=== PATIENT | male | born 2000 | race Caucasian/White ===

== ENCOUNTER 2023-09-30 14:45 | Inpatient (IN) ==
--- NOTE | 2023-09-30 14:58 | Emergency Department Note ---
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 Reports that he may have been intoxicated. Was found with some redness and swelling to his face and head with concerns of possible head trauma. Patient became quite belligerent on scene evidently police were involved. Patient ultimately required 250 mg of ketamine IM prior to arrival due to this agitation. C-collar was placed. On arrival the patient is unable to provide any significant history. Handoff from EMS as well as police at bedside reports the above history. They believe his name is Evans but they are trying to complete formal identification. There is no other known bystanders. Patient is on provide additional history. 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 C-collar in place. Head: Patient with some erythema to the face with EYES: No injection, discharge or icterus. Pupils 5 mm and dilated bilaterally reactive to light. NECK: Trachea midline. Supple c-collar in place ENT: Mucous membranes pink and moist. Pharynx without erythema or exudate. LUNGS: Airway patent. No retractions. Breath sounds clear HEART: Regular rate and rhythm. No chest wall tenderness ABDOMEN: Soft and non-tender, without guarding or rebound. SKIN: Acyanotic, warm, dry, without rashes EXTREMITIES: Without swelling, tenderness or deformity other than an approximately 2 cm abrasion to the left knee. No significant swelling or deformity noted. NEUROLOGICAL: Minimal withdrawal to painful stimuli in all extremity. Occasionally a slight cough. EK bpm normal sinus rhythm. No PVC or PAC. No acute ST segment elevation or depression with QTc 435. CONTINUOUS CARDIAC MONITORING: was ordered and showed a heart rate of 80s-100s bpm in normal sinus rhythm sinus tachycardia Patient's laboratory studies and imaging reviewed. Differential includes Alcohol intoxication, toxicologic, infection, hypoglycemia, electrolyte abnormalities, cardiac sources, intracerebral event, neurologic, trauma, as well as other pathologies. IMPRESSION/MEDICAL DECISION MAKING: Patient brought in presumptively intoxicated but concern for possible trauma to the head. Agitated in the field required IM ketamine. Patient placed on cardiac monitoring here including end-tidal CO2 with staff monitoring closely at bedside. Shortly after arrival patient became apneic. Then began to retch and was rolled onto his side and had some small amount of vomitus. Not protecting his airway. Emergently moved to room A1 and intubated for airway protection. Not hypoxic during this time. During intubation significant copious clear secretions were noted in the oropharynx that required suctioning. Postintubation chest x-ray ordered. Placed on propofol drip with as needed Versed for sedation. Sent for CT of the head, face, and cervical spine. C-collar maintained at this time. No apparent complications from intubation. Now protecting his airway. Alcohol level and labs sent. Benign abdomen. Stable pelvis. No other significant as a trauma to the extremities. CT head, face, cervical spine radiology without significant traumatic injury noted. Blood work here with slight white blood cell count of 11.6 likely more reactive and lower suspicion for infection. Alcohol level elated at 339. This seems to be the explanation for his altered mental status. Likely will require a period of intubation and sedation overnight until sensorium clears from his severe alcohol intoxication. Hospitalist and ICU contacted. C-collar removed with a negative radiology report. DIAGNOSIS: Altered mental status, respiratory failure, alcohol intoxication DISPOSITION: Hospitalist will evaluate Critical Care I have personally spent 33 minutes of critical care time in the direct management of this patient. This includes bedside care, interpretation of diagnostic studies, and testing, discussion with consultants, patient, and other required patient management activities. These 33 minutes is in excess of all separately billable procedures. ED Intubation Indication airway protection. The patient was on 100% oxygen via BVM prior to the procedure. Suction, airway equipment, RSI drugs, respiratory equipment, and appropriate personnel were prepared prior to the initiation of the procedure. A time out was taken. Induction was performed with 20 mg of etomidate and 120 mg of succinylcholine. After observing the clinical benefit of the medications, the airway was easily visualized utilizing a glidescope S3. A 7.5 size ETT tube was placed atraumatically to 23 cm using standard technique. The cuff inflated without signs of malfunction. There were bilateral breath sounds, positive colormetric change, no gastric sounds, a good capnography waveform, and post procedure pulse oximetry was 99%. Post intubation sedation was administered using Versed and propofol. There were no complications. Past Med/Surg History Social History Smoking Status: Never smoker Hx Alcohol Use: Yes Alcohol type: beer and hard liquor Hx Substance Use: Yes Preferred Language: Malagasy Communication Ability: Effective [employer] Required: No Beliefs That Will Affect Care: None Current Living Situation: Other Current Living Situation Comment: Student apartment/housing. Feels Safe at Home: Declines to Answer Assistive Devices: None Allergies Allergies Allergy/AdvReac Type Severity Reaction Status Date / Time bee venom protein (honey bee) Allergy Anaphylaxis Verified 09/30/23 18:13 Sulfa (Sulfonamide Allergy Rash Verified 09/30/23 18:13 Antibiotics) Home Meds Home Medications Medication Instructions Recorded Confirmed epinephrine 0.3 mg/0.3 mL 0.3 mg IM Q4H PRN Allergic Reaction 09/30/23 09/30/23 injection, auto-injector Results & Data (ED) Vital Signs Vital Signs - 24 hr 09/30/23 14:53 09/30/23 15:00 09/30/23 15:05 Pulse Rate 111 H 123 H 118 H Pulse Rate [Apical] Pulse Rate from SpO2 Sensor 110 H 123 H 117 H Respiratory Rate 16 Respiratory Effort / Characteristics Respiratory Depth Blood Pressure Blood Pressure [Right Arm] Blood Pressure Mean Blood Pressure Mean [Right Arm] Blood Pressure Position [Right Arm] Pulse Oximetry 98 97 97 Oxygen Delivery Method Fraction of Inspired Oxygen Sepsis Recent Fever Within 48 Hours Sepsis New/Unexplained Change in Mental Status Sepsis Action Taken by Nursing End-Tidal CO2 09/30/23 15:08 09/30/23 15:10 09/30/23 15:10 Pulse Rate 114 H Pulse Rate [Apical] Pulse Rate from SpO2 Sensor Respiratory Rate Respiratory Effort / Characteristics Respiratory Depth Blood Pressure 145/92 H 175/118 H Blood Pressure [Right Arm] Blood Pressure Mean 108 137 Blood Pressure Mean [Right Arm] Blood Pressure Position [Right Arm] Pulse Oximetry Oxygen Delivery Method Fraction of Inspired Oxygen Sepsis Recent Fever Within 48 Hours Sepsis New/Unexplained Change in Mental Status Sepsis Action Taken by Nursing End-Tidal CO2 09/30/23 15:10 09/30/23 15:12 09/30/23 15:12 Pulse Rate 115 H 106 H Pulse Rate [Apical] Pulse Rate from SpO2 Sensor 115 H 106 H Respiratory Rate 12 Respiratory Effort / Characteristics Respiratory Depth Blood Pressure 151/113 H Blood Pressure [Right Arm] Blood Pressure Mean 120 Blood Pressure Mean [Right Arm] Blood Pressure Position [Right Arm] Pulse Oximetry 100 100 Oxygen Delivery Method Fraction of Inspired Oxygen Sepsis Recent Fever Within 48 Hours Sepsis New/Unexplained Change in Mental Status Sepsis Action Taken by Nursing End-Tidal CO2 41 09/30/23 15:13 09/30/23 15:14 09/30/23 15:14 Pulse Rate 107 H Pulse Rate [Apical] Pulse Rate from SpO2 Sensor 106 H Respiratory Rate 16 Respiratory Effort / Characteristics Respiratory Depth Blood Pressure 155/102 H Blood Pressure [Right Arm] Blood Pressure Mean 126 Blood Pressure Mean [Right Arm] Blood Pressure Position [Right Arm] Pulse Oximetry 100 100 Oxygen Delivery Method Fraction of Inspired Oxygen Sepsis Recent Fever Within 48 Hours No Sepsis New/Unexplained Change in Mental Status N/A Sepsis Action Taken by Nursing No Action Required End-Tidal CO2 34 09/30/23 15:16 09/30/23 15:16 09/30/23 15:22 Pulse Rate 103 H 105 H Pulse Rate [Apical] Pulse Rate from SpO2 Sensor 104 H Respiratory Rate 16 16 Respiratory Effort / Characteristics Respiratory Depth Blood Pressure 152/92 H Blood Pressure [Right Arm] Blood Pressure Mean 112 Blood Pressure Mean [Right Arm] Blood Pressure Position [Right Arm] Pulse Oximetry 99 100 Oxygen Delivery Method Fraction of Inspired Oxygen 30 Sepsis Recent Fever Within 48 Hours Sepsis New/Unexplained Change in Mental Status Sepsis Action Taken by Nursing End-Tidal CO2 35 40 09/30/23 15:34 09/30/23 15:39 09/30/23 15:39 Pulse Rate 99 H Pulse Rate [Apical] Pulse Rate from SpO2 Sensor 108 H 99 H Respiratory Rate 18 Respiratory Effort / Characteristics Respiratory Depth Blood Pressure 130/94 Blood Pressure [Right Arm] Blood Pressure Mean 107 Blood Pressure Mean [Right Arm] Blood Pressure Position [Right Arm] Pulse Oximetry 100 99 Oxygen Delivery Method Fraction of Inspired Oxygen Sepsis Recent Fever Within 48 Hours Sepsis New/Unexplained Change in Mental Status Sepsis Action Taken by Nursing End-Tidal CO2 35 09/30/23 15:40 09/30/23 15:41 09/30/23 15:41 Pulse Rate 109 H 109 H Pulse Rate [Apical] Pulse Rate from SpO2 Sensor 110 H 112 H Respiratory Rate 12 20 Respiratory Effort / Characteristics Respiratory Depth Blood Pressure 119/87 Blood Pressure [Right Arm] Blood Pressure Mean 88 Blood Pressure Mean [Right Arm] Blood Pressure Position [Right Arm] Pulse Oximetry 99 100 Oxygen Delivery Method Fraction of Inspired Oxygen Sepsis Recent Fever Within 48 Hours Sepsis New/Unexplained Change in Mental Status Sepsis Action Taken by Nursing End-Tidal CO2 36 31 09/30/23 15:42 09/30/23 15:42 09/30/23 15:44 Pulse Rate 114 H 115 H Pulse Rate [Apical] Pulse Rate from SpO2 Sensor 114 H 111 H Respiratory Rate Respiratory Effort / Characteristics Respiratory Depth Blood Pressure 149/109 H Blood Pressure [Right Arm] Blood Pressure Mean 130 Blood Pressure Mean [Right Arm] Blood Pressure Position [Right Arm] Pulse Oximetry 99 100 Oxygen Delivery Method Fraction of Inspired Oxygen Sepsis Recent Fever Within 48 Hours Sepsis New/Unexplained Change in Mental Status Sepsis Action Taken by Nursing End-Tidal CO2 09/30/23 15:44 09/30/23 15:46 09/30/23 15:46 Pulse Rate Pulse Rate [Apical] 103 H Pulse Rate from SpO2 Sensor Respiratory Rate 20 Respiratory Effort / Characteristics Non-Labored Respiratory Depth Normal Blood Pressure 151/99 H Blood Pressure [Right Arm] 138/87 Blood Pressure Mean 109 Blood Pressure Mean [Right Arm] 104 Blood Pressure Position [Right Arm] Pulse Oximetry 99 100 Oxygen Delivery Method Mechanical Vent Mechanical Vent Fraction of Inspired Oxygen Sepsis Recent Fever Within 48 Hours Sepsis New/Unexplained Change in Mental Status Sepsis Action Taken by Nursing End-Tidal CO2 09/30/23 15:46 09/30/23 15:46 09/30/23 15:48 Pulse Rate 101 H Pulse Rate [Apical] Pulse Rate from SpO2 Sensor 100 H Respiratory Rate Respiratory Effort / Characteristics Respiratory Depth Blood Pressure 138/87 130/77 Blood Pressure [Right Arm] Blood Pressure Mean 109 98 Blood Pressure Mean [Right Arm] Blood Pressure Position [Right Arm] Pulse Oximetry 98 Oxygen Delivery Method Fraction of Inspired Oxygen Sepsis Recent Fever Within 48 Hours Sepsis New/Unexplained Change in Mental Status Sepsis Action Taken by Nursing End-Tidal CO2 09/30/23 15:48 09/30/23 15:50 09/30/23 15:50 Pulse Rate 95 H 95 H Pulse Rate [Apical] Pulse Rate from SpO2 Sensor 95 H 95 H Respiratory Rate Respiratory Effort / Characteristics Respiratory Depth Blood Pressure 133/77 Blood Pressure [Right Arm] Blood Pressure Mean 91 Blood Pressure Mean [Right Arm] Blood Pressure Position [Right Arm] Pulse Oximetry 99 98 Oxygen Delivery Method Fraction of Inspired Oxygen Sepsis Recent Fever Within 48 Hours Sepsis New/Unexplained Change in Mental Status Sepsis Action Taken by Nursing End-Tidal CO2 09/30/23 16:00 09/30/23 16:00 09/30/23 16:10 Pulse Rate 93 H Pulse Rate [Apical] Pulse Rate from SpO2 Sensor 94 H Respiratory Rate 16 Respiratory Effort / Characteristics Respiratory Depth Blood Pressure 125/71 124/69 Blood Pressure [Right Arm] Blood Pressure Mean 96 100 Blood Pressure Mean [Right Arm] Blood Pressure Position [Right Arm] Pulse Oximetry 98 Oxygen Delivery Method Fraction of Inspired Oxygen Sepsis Recent Fever Within 48 Hours Sepsis New/Unexplained Change in Mental Status Sepsis Action Taken by Nursing End-Tidal CO2 31 09/30/23 16:10 09/30/23 16:16 09/30/23 16:20 Pulse Rate 90 Pulse Rate [Apical] 87 Pulse Rate from SpO2 Sensor 89 Respiratory Rate 16 30 H Respiratory Effort / Characteristics Mechanically Ventilated Respiratory Depth Normal Blood Pressure 128/73 Blood Pressure [Right Arm] 124/69 Blood Pressure Mean 101 Blood Pressure Mean [Right Arm] 87 Blood Pressure Position [Right Arm] Lying Pulse Oximetry 98 98 Oxygen Delivery Method Mechanical Vent Fraction of Inspired Oxygen Sepsis Recent Fever Within 48 Hours Sepsis New/Unexplained Change in Mental Status Sepsis Action Taken by Nursing End-Tidal CO2 30 09/30/23 16:20 09/30/23 16:30 09/30/23 16:30 Pulse Rate 85 94 H Pulse Rate [Apical] Pulse Rate from SpO2 Sensor 85 95 H Respiratory Rate 16 16 Respiratory Effort / Characteristics Respiratory Depth Blood Pressure 141/82 H Blood Pressure [Right Arm] Blood Pressure Mean 102 Blood Pressure Mean [Right Arm] Blood Pressure Position [Right Arm] Pulse Oximetry 98 98 Oxygen Delivery Method Fraction of Inspired Oxygen Sepsis Recent Fever Within 48 Hours Sepsis New/Unexplained Change in Mental Status Sepsis Action Taken by Nursing End-Tidal CO2 31 33 09/30/23 16:40 Pulse Rate 90 Pulse Rate [Apical] Pulse Rate from SpO2 Sensor Respiratory Rate Respiratory Effort / Characteristics Respiratory Depth Blood Pressure Blood Pressure [Right Arm] Blood Pressure Mean Blood Pressure Mean [Right Arm] Blood Pressure Position [Right Arm] Pulse Oximetry Oxygen Delivery Method Fraction of Inspired Oxygen Sepsis Recent Fever Within 48 Hours Sepsis New/Unexplained Change in Mental Status Sepsis Action Taken by Nursing End-Tidal CO2 Laboratory Data 09/30/23 15:49 09/30/23 15:49 Lab Results 09/30/23 Range/Units 15:49 WBC 11.60 H (4.8-10.8) K/ul RBC 5.07 (4.70-6.10) M/uL Hgb 16.0 (14.0-18.0) g/dl Hct 45.7 (42.0-52.0) % MCV 90.1 (80.0-100.0) fL MCH 31.6 (25.0-34.0) pg MCHC 35.0 (32.0-36.0) g/dL RDW Std Deviation 40.9 (36.4-46.3) fL RDW Coeff of Farhad 12.6 (11.5-14.5) % Plt Count 357 (130-400) K/uL MPV 8.3 L (9.4-12.4) fL Immature Gran % (Auto) 0.5 % Neut % (Auto) 84.4 % Lymph % (Auto) 8.7 % [place] % (Auto) 5.9 % Eos % (Auto) 0.0 % Baso % (Auto) 0.5 % Neut # (Auto) 9.79 H (1.40-6.50) K/uL Lymph # (Auto) 1.01 L (1.20-3.40) K/uL [place] # (Auto) 0.68 H (0.11-0.59) K/uL Eos # (Auto) 0.00 (0.00-0.50) K/uL Baso # (Auto) 0.06 (0.00-0.20) K/uL Immature Gran # (Auto) 0.06 (0.01-0.20) K/uL Sodium 143 (136-145) mmol/L Potassium 3.9 (3.5-5.1) mmol/L Chloride 108 H (98-107) mmol/L Carbon Dioxide 21 (21-32) mmol/L Anion Gap 14 H (3-11) BUN 15 (6-23) mg/dl Creatinine 0.85 (0.6-1.4) mg/dl Est Cr Clr Drug Dosing 141.9 ml/min Est GFR ( Amer) 144.4 ml/min Est GFR (Non-Af Amer) 124.6 ml/min BUN/Creatinine Ratio 17.6 (10-20) Glucose 99 (70-99(Fasting)) mg/dl Calcium 9.5 (8.6-10.3) mg/dl Total Bilirubin 0.4 (0.2-1.0) mg/dl AST 22 (13-39) U/L ALT 15 (7-52) U/L Alkaline Phosphatase 64 (34-104) U/L Total Protein 7.8 (6.0-8.3) gm/dl Albumin 4.9 (3.4-5.0) gm/dl Globulin 2.9 (2.5-4.0) gm/dl Albumin/Globulin Ratio 1.7 (0.9-2) Ethyl Alcohol mg/dL 339.1 H (<10.0) mg/dl Administered Medications Propofol (Diprivan) 1,000 mg in 100 mls @ 14.292 mls/hr IV .Q7H [facility]; Protocol Stop: 10/03/23 15:14 Last Titration: 09/30/23 16:56 Dose: 30 mcg/kg/min, 14.3 mls/hr Documented By: Titration: 09/30/23 15:40 Dose: 25 mcg/kg/min, 11.9 mls/hr Documented By: Admin: 09/30/23 15:16 Dose: 20 mcg/kg/min, 9.5 mls/hr Documented By: FAB Co-signed By: CAROLINE Lactated Ringer's (Lr) 1,000 mls @ 125 mls/hr IV .Q8H [facility] Stop: 10/30/23 17:44 Last Admin: 09/30/23 17:46 Dose: 125 mls/hr Documented By: DOE Fentanyl Citrate (Fentanyl Citrate) 2,500 mcg in 250 mls @ 2.5 mls/hr IV .Q96H [facility]; Protocol Stop: 10/14/23 17:59 Last Admin: 09/30/23 17:59 Dose: 25 mcg/hr, 2.5 mls/hr Documented By: DOE Co-signed By: JACKIE Midazolam HCl (Midazolam Hcl 1 Mg/Ml 2ml Vial) 2 mg IV Q2H PRN PRN Reason: Agitation Stop: 10/30/23 17:48 Last Admin: 09/30/23 17:55 Dose: 2 mg Documented By: DOE Propofol (Propofol Bolus From Bag) 20 mg IV Q5M PRN PRN Reason: Sedation Stop: 10/03/23 15:09 Last Admin: 09/30/23 16:56 Dose: 20 mg Documented By: FAB Co-signed By: AYUSH Admin: 09/30/23 15:29 Dose: 20 mg Documented By: FAB Co-signed By: CAROLINE Admin: 09/30/23 15:22 Dose: 20 mg Documented By: FAB Co-signed By: CAROLINE Admin: 09/30/23 15:16 Dose: 20 mg Documented By: FAB Co-signed By: CAROLINE Discontinued Medications Midazolam HCl (Midazolam Hcl 5 Mg/Ml 1 Ml Vial) 5 mg IV NOW STA Stop: 09/30/23 15:58 Last Admin: 09/30/23 15:59 Dose: Not Given Documented By: FAB Miscellaneous (Rapid Sequence Induction Bag) Confirm Administered Dose 1 each N/A .STK-MED ONE Stop: 09/30/23 15:05 Last Admin: 09/30/23 15:16 Dose: 1 each Documented By: FAB Miscellaneous (Stat Iv Infusion Titration Per Protocol) 1 each N/A NOW STA Stop: 09/30/23 15:11 Last Admin: 09/30/23 15:16 Dose: 1 each Documented By: FAB Propofol (Propofol Iv Emulsion 10 Mg/Ml 100 Ml Vial) Confirm Administered Dose 1,000 mg IV .STK-MED ONE Stop: 09/30/23 15:12 Last Admin: 09/30/23 15:16 Dose: 1,000 mg Documented By: FAB Co-signed By: CAROLINE Imaging Data Radiologist's Impression: Cervical Spine CT 09/30/23 14:50 CT OF THE CERVICAL SPINE WITHOUT CONTRAST CLINICAL HISTORY: facial trauma, etoh COMPARISON STUDY: No previous studies for comparison. TECHNIQUE: Helical axial images of the cervical spine were obtained without IV contrast. Sagittal and coronal reconstructions were viewed. Automated exposure control was utilized for the study. A dose lowering technique was utilized adhering to the principles of ALARA. FINDINGS: Alignment of the cervical spine is anatomic. Vertebral body heights are maintained. No acute cervical spine fracture or subluxation is present. There is no prevertebral edema. Facet joints are intact. Endotracheal tube is partially imaged. Secretions within the pharynx are related to intubation. IMPRESSION: No acute cervical spine fracture or subluxation. ACT 112: Negative or not required by law. Electronically signed by: Sonny Hill M.D. 09/30/2023 4:[address] 09/30/23 14:[address] WITHOUT CONTRAST CLINICAL HISTORY: facial trauma, etoh COMPARISON STUDY: None. TECHNIQUE: A maxillofacial CT was performed without IV contrast. Coronal and sagittal reformats were viewed. Automated exposure control was utilized for the study. A dose lowering technique was utilized adhering to the principles of ALARA. FINDINGS: Endotracheal tube is partially imaged. This likely accounts for secretions within the oropharynx and nasopharynx. There are also secretions within the right nasal cavity/nares. No acute facial bone fracture is present. Alignment of the temporomandibular joints is anatomic. Globes are intact. There is no retrobulbar hematoma. There is rightward deviation of the nasal septum with spur formation. This is chronic. Orbital floors are intact. IMPRESSION: No acute facial fracture. ACT 112: Negative or not required by law. Electronically signed by: Sonny Hill M.D. 09/30/2023 4:[address] 09/30/23 14:50 CT OF THE HEAD WITHOUT CONTRAST CLINICAL HISTORY: facial trauma, etoh COMPARISON STUDY: No previous studies for comparison. TECHNIQUE: Helical axial images of the head were obtained without IV contrast. Automated exposure control was utilized for the study. A dose lowering technique was utilized adhering to the principles of ALARA. FINDINGS: No acute intracranial hemorrhage, midline shift or mass effect is present. The ventricular system is unremarkable. The basal cisterns are patent. No extra-axial collections are present. There are no findings to suggest acute dural sinus thrombosis or acute territorial infarct. No acute calvarial fracture is identified. Please note that the facial bone CT will be reported separately. There are right nasal secretions. IMPRESSION: 1. No acute intracranial findings. 2. No acute calvarial fracture. ACT 112: Negative or not required by law. Electronically signed by: Sonny Hill M.D. 09/30/2023 4:01 PM Chest X-Ray 09/30/23 15:09 SUPINE PORTABLE AP CHEST RADIOGRAPH CLINICAL HISTORY: s/p intubation COMPARISON STUDY: No previous studies for comparison. FINDINGS: The tip of the endotracheal tube is 4.5 cm above the josr. Lung volumes are normal. Lungs are clear. There is no pneumothorax or pleural effusion. Cardiac size is normal. Mediastinal contours are normal. There is no evidence for pulmonary edema. IMPRESSION: 1. Satisfactory positioning of the endotracheal tube. 2. No acute cardiopulmonary findings. ACT 112: Negative or not required by law. Electronically signed by: Sonny Hill M.D. 09/30/2023 3:57 PM Discharge Plan Visit Data Chief Complaint: Facial Injury/Pain Stated Complaint: FACIAL TRAUMA, COMBATIVE ED Provider: Niko Archibald Discharge Problem: Respiratory failure, AMS (altered mental status), Alcohol intoxication Patient Disposition: Admitted As Inpatient Discharge Instructions Interventions: ED Discharge Assessment Last Done: 09/30/23 17:22 Discharge Problem: Respiratory failure Qualifiers: Chronicity: acute AMS (altered mental status) Qualifiers: Altered mental status type: unspecified Qualified Code(s): R41.82 - Altered mental status, unspecified Alcohol intoxication Qualifiers: Complication of substance-induced condition: with unspecified complication Q ualified Code(s): F10.929 - Alcohol use, unspecified with intoxication, unspecified
[2023-09-30] MEDS ORDERED: RAPID SEQUENCE INDUCTION BAG ONE (15:04)
[2023-09-30] MEDS ORDERED: STAT IV Infusion **Titration per Protocol STA ×2 (15:10→17:50)
[2023-09-30] MEDS ORDERED: PROPOFOL IV EMULSION 10 MG/ML 100 ML VIAL IV ONE (15:11)
[2023-09-30] MEDS: propofoL 1,000 MG/100 ML VIAL IV SCH ×3 (15:16→23:00)
[2023-09-30] MEDS: PROPOFOL BOLUS FROM BAG IV PRN ×4 (15:16→16:56)
[2023-09-30] MEDS ORDERED: MIDAZOLAM HCL 5 MG/ML 1 ML VIAL IV STA (15:57)
--- NOTE | 2023-09-30 15:58 | XRay Report ---
SUPINE PORTABLE AP CHEST RADIOGRAPH CLINICAL HISTORY: s/p intubation COMPARISON STUDY: No previous studies for comparison. FINDINGS: The tip of the endotracheal tube is 4.5 cm above the josr. Lung volumes are normal. Lungs are clear. There is no pneumothorax or pleural effusion. Cardiac size is normal. Mediastinal contour s are normal. There is no evidence for pulmonary edema. IMPRESSION: 1. Satisfactory positioning of the endotracheal tube. 2. No acute cardiopulmonary findings. ACT 112: Negative or not required by law. Electronically signed by: Sonny Hill M.D. 09/30/2023 3:57 PM
--- NOTE | 2023-09-30 16:03 | CT Scan Report ---
CT OF THE HEAD WITHOUT CONTRAST CLINICAL HISTORY: facial trauma, etoh COMPARISON STUDY: No previous studies for comparison. TECHNIQUE: Helical axial images of the head were obtained without IV contrast. Automated exposure con trol was utilized for the study. A dose lowering technique was utilized adhering to the principles o f ALARA. FINDINGS: No acute intracranial hemorrhage, midline shift or mass effect is present. The ventricular system is unremarkable. The basal cisterns are patent. No extra-axial collections are present. There are no findings to suggest acute dural sinus thrombosis or acute territorial infarct. No acute calvar ial fracture is identified. Please note that the facial bone CT will be reported separately. There ar e right nasal secretions. IMPRESSION: 1. No acute intracranial findings. 2. No acute calvarial fracture. ACT 112: Negative or not required by law. Electronically signed by: Sonny Hill M.D. 09/30/2023 4:01 PM
[2023-09-30 16:05] LABS: Basophils # (auto) 0.06 K/uL (0.00-0.20); Basophils % (auto) 0.5 %; Hematocrit (blood only) 45.7 % (42.0-52.0); Immature Granulocytes # (auto) 0.06 K/uL (0.01-0.20); Immature Granulocytes % (auto) 0.5 %; Lymphocytes # (auto) 1.01 K/uL (1.20-3.40); Lymphocytes % (auto) 8.7 %; Mean Corpuscular Hemoglobin 31.6 pg (25.0-34.0); Mean Corpuscular Volume 90.1 fL (80.0-100.0); Mean Platelet Volume 8.3 fL (9.4-12.4); Monocytes # (auto) 0.68 K/uL (0.11-0.59); Monocytes % (auto) 5.9 %; Neutrophils # (auto) 9.79 K/uL (1.40-6.50); Neutrophils % (auto) 84.4 %; Platelet Count 357 K/uL (130-400); RDW Coefficient of Variation 12.6 % (11.5-14.5); RDW Standard Deviation 40.9 fL (36.4-46.3); Red Blood Count 5.07 M/uL (4.70-6.10)
--- NOTE | 2023-09-30 16:11 | CT Scan Report ---
MAXILLOFACIAL CT WITHOUT CONTRAST CLINICAL HISTORY: facial trauma, etoh COMPARISON STUDY: None. TECHNIQUE: A maxillofacial CT was performed without IV contrast. Coronal and sagittal reformats were viewed. Automated exposure control was utilized for the study. A dose lowering technique was utiliz ed adhering to the principles of ALARA. FINDINGS: Endotracheal tube is partially imaged. This likely accounts for secretions within the oroph arynx and nasopharynx. There are also secretions within the right nasal cavity/nares. No acute facial bone fracture is present. Alignment of the temporomandibular joints is anatomic. Globes are intact. There is no retrobulbar hematoma. There is rightward deviation of the nasal septum with spur formatio n. This is chronic. Orbital floors are intact. IMPRESSION: No acute facial fracture. ACT 112: Negative or not required by law. Electronically signed by: Sonny Hill M.D. 09/30/2023 4:10 PM
--- NOTE | 2023-09-30 16:16 | CT Scan Report ---
CT OF THE CERVICAL SPINE WITHOUT CONTRAST CLINICAL HISTORY: facial trauma, etoh COMPARISON STUDY: No previous studies for comparison. TECHNIQUE: Helical axial images of the cervical spine were obtained without IV contrast. Sagittal a nd coronal reconstructions were viewed. Automated exposure control was utilized for the study. A do se lowering technique was utilized adhering to the principles of ALARA. FINDINGS: Alignment of the cervical spine is anatomic. Vertebral body heights are maintained. No acut e cervical spine fracture or subluxation is present. There is no prevertebral edema. Facet joints are intact. Endotracheal tube is partially imaged. Secretions within the pharynx are related to intubat ion. IMPRESSION: No acute cervical spine fracture or subluxation. ACT 112: Negative or not required by law. Electronically signed by: Sonny Hill M.D. 09/30/2023 4:15 PM
[2023-09-30 16:21] LABS: Albumin Globulin Ratio 1.7 (0.9-2); Albumin Level 4.9 gm/dl (3.4-5.0); BUN Creatinine Ratio 17.6 (10-20); Bilirubin,Total 0.4 mg/dl (0.2-1.0); Calcium 9.5 mg/dl (8.6-10.3); Creatinine Clr Calc Pharmacy 141.9 ml/min; Est GFR (African American) 144.4 ml/min; Est GFR (Non-African American) 124.6 ml/min; Globulin 2.9 gm/dl (2.5-4.0); Potassium 3.9 mmol/L (3.5-5.1); Total Protein 7.8 gm/dl (6.0-8.3)
--- NOTE | 2023-09-30 16:34 | Emergency Department Note ---
ED Visit Note Prehospital Note: College-age male patient found unresponsive in the [facility] by bystanders. EMS was dispatched to this location. Upon my arrival, the patient was unresponsive to verbal and painful stimuli. He was noted to have trauma about his face and head. He had some vomit noted on his sweatshirt. Heart rate was 95 pulse ox was 98% on room air. Pupils were 2 mm and nonreactive to light. We did hold C-spine immobilization because of the trauma to his face and head. A c-collar was placed. Bystanders state that the patient was found unresponsive there and when they tried to wake him, he became belligerent. With some more aggressive painful stimulation(sternal rub) the patient awoke and looked at me. He did answer that his name was Evans. He denied that he was a [employer] student. Patient was moved to the ambulance stretcher and became significantly uncooperative. Patient requested that he be handcuffed. Police placed him in handcuffs and he was strapped to the stretcher. Once he was placed in the back of the ambulance, the patient became significantly combative and belligerent. He refused to leave the c-collar in place and was throwing his head about the stretcher trying to strike police and EMS personnel with his head. We were unable to obtain a BSG. I felt the patient was going to cause further injury to himself or to the police or EMS. I decided to sedate the patient with intramuscular ketamine. The patient's presumed weight was between 65 and 70 kg and the patient was given 250 mg of IM ketamine in his left thigh. The patient was placed on 15 L high flow oxygen through nonrebreather mask. He was placed on a cafeteria monitor and pulse oximeter. Initial heart rate was 124. Pulse ox was 99% on the nonrebreather mask. The effects of the ketamine were realized within approximately 4 to 6 minutes. The patient was easily able to protect his own airway and we began safe transport to the hospital. Patient was delivered to room A-12. Report was given at the bedside to the nursing staff and physician who would care for the patient. .
--- NOTE | 2023-09-30 16:45 | History & Physical Report ---
Date of Service September 30, 2023 Assessment & Plan (1) Alcohol intoxication: Plan: Alcohol intoxication, unable to guard airway, respiratory failure S/p [place] Patient found in a [place] by bystanders, aroused to noxious stimuli by EMS but became combative requiring 250 IM of ketamine While in the ER patient had episode of vomiting and apnea for which she was intubated to protect his airway. SPO2 normal since, chest x-ray confirms ETT placed Intubated with midazolam/propofol, transferred to the ICU while intubated for airway protection. COntinue propofol drip Alcohol level 339. Mild leukocytosis suspect demargination - CT of the face shows no fracture CTC-spine without fracture/subluxation Transferred to the ICU for vent management UDS pending No contact information available. 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 Patient was placed in a c-collar. With aggressive sternal rub patient did arouse but also became combative in the ambulance requiring to 50 mg of ketamine in the left side for sedation. He arrived on 15 L of high flow nasal cannula through nonrebreather, while within the hospital patient had an episode of vomiting and apnea for which he was emergently intubated and placed on propofol drip with Versed. CXR confirmed placement. CT of the neck w/o fxr or subluxation. History unable to be obtained due to ETT/sedation. Patient does have a cellular device which is password protected and does not have emergency call/contact set up. Unable to access for contact information Allergies Allergy/AdvReac Type Severity Reaction Status Date / Time Unable to Assess Allergy Verified 09/30/23 15:05 Home Medications Medication Instructions Recorded Confirmed Type Unobtainable 09/30/23 09/30/23 History Past Med/Surg History Social History Smoking Status: Unknown if ever smoked Physical Exam Physical Exam: General: Intubated, sedated. Withdraws to noxious stimuli, otherwise does not follow commands HEENT: Erythema of the face, scant amount of blood surrounding the nare. Pupils equal and reactive to light Pulm: ETT in place, clear breath sounds bilaterally Cardiac: RRR, -mrg. Radial pulses intact and symmetrical. Abdominal: nondistended, soft. BS present. Extremities: Superficial abrasion to the right and left lateral knee Results & Data Results & Data Vital Signs (Past 12 Hours) Vital Signs Pulse Pulse Resp BP Pulse Ox O2 Del Method FiO2 09/30/23 16:16 87 30 H 124/69 98 Mechanical Vent 09/30/23 15:46 100 Mechanical Vent 09/30/23 15:46 103 H 20 138/87 99 Mechanical Vent 09/30/23 15:22 105 H 16 100 30 09/30/23 15:13 100 09/30/23 15:10 114 H PG Care Time/CCT Total # of Minutes Spent Total Time Spent with Patient: Total time spent is greater than 50% in coordination of care (as documented) at patient's floor/unit and/or counseling patient: Coding Level of Care Code 76459 INT INP/OBS CARE 3/75MIN Diagnoses Alcohol intoxication F10.929 Respiratory failure J96.90 Chronicity: acute AMS (altered mental status) R41.82 Altered mental status type: unspecified (2) Respiratory failure Chronicity: acute (3) AMS (altered mental status) Altered mental status type: unspecified Qualified Code(s): R41.82 - Altered mental status, unspecified
[2023-09-30 17:28] LABS: Amphetamines+Metham, Urine Neg (Neg); Barbiturates, Urine Neg (Neg); Benzodiazepine, Urine Pos (Neg); Cocaine, Urine Neg (Neg); MDMA (Ecstacy), Urine Neg (Neg); Methadone, Urine Neg (Neg); Opiate, Urine Neg (Neg); Phencyclidine, Urine Neg (Neg)
--- NOTE | 2023-09-30 17:44 | Critical Care Consultation ---
Date of Consultation September 30, 2023 Assessment & Plan (1) Alcohol intoxication: (2) AMS (altered mental status): (3) Respiratory failure: Plan 23-year-old male found in the field obtunded and then became severely agitated. Received ketamine in the field and was brought to the ER via EMS. In the ER he started vomiting and there was concern for aspiration. He was intubated for airway protection. UDS was positive for THC and benzos. Ethanol level 339.1. Neurologic: RASS -1 on propofol. Spontaneous awakening trial tomorrow. Patient presented with agitated delirium likely due to THC and alcohol use. Pulmonary: Minimal vent settings at this time. Continue lung protective ventilation strategy. Obtain baseline ABG. Start antibiotics if patient spikes fever for possible aspiration. Cardiovascular: Maintain MAP above 65 mmHg. Obtain troponin. Admission EKG normal sinus rhythm with a QTc of 360. Gastrointestinal: NGT to low intermittent suction. Renal: No issues aside from mild anion gap. Repeat BMP. Start LR at 125 mL an hour. Infectious disease: Chest x-ray relatively clear. Low threshold to start antibiotics for possible aspiration pneumonia. Hematologic: No issues Endocrine: Check TSH. Maintain euglycemia. Lines and tubes: Peripheral IVs and Best catheter in place. VTE prophylaxis: SCDs CODE STATUS: Full Family at bedside: None available bedside Disposition: ICU I have personally spent 44 minutes of critical care time in the direct management of this patient. This is a life/limb threatening event. This includes time spent evaluating patient, direct bedside care, chart review, placing orders, interpretation of diagnostic studies, discussion with consultants, patient, and family members, as well as other required patient management activities. This time is exclusive of all separately billable procedures, and teaching time and separate from and in addition to any other critical care service time. Thank you for allowing us to participate in the care of this patient. History of Present Illness Reason for Consultation: Acute encephalopathy and mechanical ventilation History of Present Illness History unobtainable from the patient as he is currently intubated and sedated. History obtained from discussion with the ER physician, hospitalist physician, bedside nurse and respiratory therapist. No family immediately available at bedside. 23-year-old male who was found unresponsive. EMS found the patient and he became agitated and aggressive. He was given ketamine. On arrival to the ER he was hypoxic and vomiting. He was intubated for airway protection. He is currently on a propofol infusion. CT head unremarkable. CT face with no acute facial fracture. CT C-spine with no acute cervical spine fracture or subluxation. Labs largely unremarkable aside from mild leukocytosis likely secondary to stress. Mild anion gap seen. Repeat BMP. Allergies Allergy/AdvReac Type Severity Reaction Status Date / Time Unable to Assess Allergy Verified 09/30/23 15:05 Home Medications Medication Instructions Recorded Confirmed Type Unobtainable 09/30/23 09/30/23 History Patient History Social History Smoking Status: Unknown if ever smoked Review of Systems Review of Systems: Unobtainable due to endotracheal tube Physical Exam Physical Exam: Constitutional: Patient appears to be of their stated age Patient is well- developed. Eyes: Pupils are equal round and reactive to light. Conjunctivae are normal. Anicteric sclera. Ears nose, mouth and throat: Endotracheal tube in place. Neck: Trachea is midline. Visual inspection is normal. Respiratory: Clear to auscultation bilaterally. No use of accessory muscles. No significant clubbing noted. Cardiovascular: Regular rate and rhythm. No murmurs. No edema. Gastrointestinal: Normal bowel sounds, soft, nontender and nondistended. No hepatosplenomegaly noted. Musculoskeletal: No cyanosis. Patient is able to move all extremities. Strength is 5 out of 5 in the upper and lower extremities. Skin: No rashes, warm dry and intact. Neurologic: Difficult to assess. Apparently nonfocal prior to intubation. Psychiatric: Unobtainable as the patient is sedated. Results & Data Results & Data Vital Signs (Past 12 Hours) Vital Signs Pulse Pulse Resp BP BP Pulse Ox O2 Del Method 09/30/23 17:22 Mechanical Vent 09/30/23 17:00 81 16 99 09/30/23 17:00 130/79 09/30/23 16:54 98 H 99 09/30/23 16:54 147/113 H 09/30/23 16:50 107 H 09/30/23 16:40 90 09/30/23 16:30 94 H 16 98 09/30/23 16:30 141/82 H 09/30/23 16:20 85 16 98 09/30/23 16:20 128/73 09/30/23 16:16 87 30 H 124/69 98 Mechanical Vent 09/30/23 16:10 90 16 98 09/30/23 16:10 124/69 09/30/23 16:00 93 H 16 98 09/30/23 16:00 125/71 09/30/23 15:50 133/77 09/30/23 15:50 95 H 98 09/30/23 15:48 95 H 99 09/30/23 15:48 130/77 09/30/23 15:46 101 H 98 09/30/23 15:46 138/87 09/30/23 15:46 100 Mechanical Vent 09/30/23 15:46 103 H 20 138/87 99 Mechanical Vent 09/30/23 15:44 151/99 H 09/30/23 15:44 115 H 100 09/30/23 15:42 114 H 99 09/30/23 15:42 149/109 H 09/30/23 15:41 119/87 09/30/23 15:41 109 H 20 100 09/30/23 15:40 109 H 12 99 09/30/23 15:39 99 H 18 99 09/30/23 15:39 130/94 09/30/23 15:34 100 09/30/23 15:22 105 H 16 100 09/30/23 15:16 103 H 16 99 09/30/23 15:16 152/92 H 09/30/23 15:14 107 H 16 100 09/30/23 15:14 155/102 H 09/30/23 15:13 100 09/30/23 15:12 151/113 H 09/30/23 15:12 106 H 12 100 09/30/23 15:10 115 H 100 09/30/23 15:10 175/118 H 09/30/23 15:10 114 H 09/30/23 15:08 145/92 H 09/30/23 15:05 118 H 97 09/30/23 15:00 123 H 97 09/30/23 14:53 111 H 16 98 FiO2 09/30/23 17:22 09/30/23 17:00 09/30/23 17:00 09/30/23 16:54 09/30/23 16:54 09/30/23 16:50 09/30/23 16:40 09/30/23 16:30 09/30/23 16:30 09/30/23 16:20 09/30/23 16:20 09/30/23 16:16 09/30/23 16:10 09/30/23 16:10 09/30/23 16:00 09/30/23 16:00 09/30/23 15:50 09/30/23 15:50 09/30/23 15:48 09/30/23 15:48 09/30/23 15:46 09/30/23 15:46 09/30/23 15:46 09/30/23 15:46 09/30/23 15:44 09/30/23 15:44 09/30/23 15:42 09/30/23 15:42 09/30/23 15:41 09/30/23 15:41 09/30/23 15:40 09/30/23 15:39 09/30/23 15:39 09/30/23 15:34 09/30/23 15:22 30 09/30/23 15:16 09/30/23 15:16 09/30/23 15:14 09/30/23 15:14 09/30/23 15:13 09/30/23 15:12 09/30/23 15:12 09/30/23 15:10 09/30/23 15:10 09/30/23 15:10 09/30/23 15:08 09/30/23 15:05 09/30/23 15:00 09/30/23 14:53 Coding Level of Care Code 25533 CRITICAL CARE 1ST 30-74M Diagnoses Alcohol intoxication F10.929 AMS (altered mental status) R41.82 Altered mental status type: unspecified Respiratory failure J96.90 Chronicity: acute Time Spent (min) 44 (2) AMS (altered mental status) Altered mental status type: unspecified Qualified Code(s): R41.82 - Altered mental status, unspecified (3) Respiratory failure Chronicity: acute
[2023-09-30] MEDS: LACTATED RINGER'S 1,000 ML IV SCH (17:46)
[2023-09-30] MEDS ORDERED: MIDAZOLAM HCL 1 MG/ML 2ML VIAL ONE (17:51)
[2023-09-30] MEDS: MIDAZOLAM HCL 1 MG/ML 2ML VIAL IV PRN (17:55)
[2023-09-30] MEDS ORDERED: fentaNYL citrate 2,500 MCG/250 ML BAG IV ONE (17:57)
[2023-09-30 17:58] LABS: iSTAT Allen Test Pass; iSTAT Art Bld Gas pCO2 Correct 36 mmHg (35-46); iSTAT Art Bld Gas pH Corrected 7.376 (7.35-7.45); iSTAT Arterial Blood Gas HCO3 21 meg/L (19-24); iSTAT Arterial Blood Gas pCO2 36 mmHg (35-46); iSTAT Arterial Blood Gas pH 7.38 (7.35-7.45); iSTAT Arterial Blood Gas pO2 160 mmHg (80-95); iSTAT Arterial Blood Gas pO2 C 160; iSTAT Carbon Dioxide 22 mmol/L (24-31); iSTAT FiO2 30 %; iSTAT Hematocrit 45 % (42-52); iSTAT Hemoglobin 15.3 g/dl (14.0-18.0); iSTAT Potassium 3.7 mmol/L (3.3-5.0); iSTAT Site L Radial; iSTAT Sodium 146 mmol/L (135-144)
[2023-09-30] MEDS ORDERED: fentaNYL citrate 2,500 MCG/250 ML BAG IV SCH (18:00)
[2023-09-30] MEDS ORDERED: INFLUENZA VIRUS QUADRIVALENT VACCINE (IIV4) 0.5 ML SYR IM ONE (18:45)
[2023-09-30 19:18] LABS: BUN Creatinine Ratio 15.3 (10-20); Calcium 9.2 mg/dl (8.6-10.3); Creatinine Clr Calc Pharmacy 141.9 ml/min; Est GFR (African American) 144.4 ml/min; Est GFR (Non-African American) 124.6 ml/min; Potassium 3.7 mmol/L (3.5-5.1)
[2023-09-30 19:25] LABS: Troponin I High Sensitivity 3.3 pg/ml (0-20)
[2023-09-30 19:34] LABS: Thyroid Stimulating Hormone 0.667 uIu/ml (0.300-4.500)
[2023-09-30] MEDS: ICU Protocol for HYPERglycemia SCH (20:35)
[2023-10-01] MEDS: MIDAZOLAM HCL 1 MG/ML 2ML VIAL IV PRN ×2 (00:27→04:46)
[2023-10-01] MEDS: fentaNYL BOLUS from BAG IV PRN ×2 (02:00→04:53)
[2023-10-01] MEDS: PROPOFOL BOLUS FROM BAG IV PRN ×2 (02:00→04:53)
[2023-10-01] MEDS ORDERED: GLUCOSE 40% GEL 15 GM TUBE PO PRN (02:19)
[2023-10-01] MEDS ORDERED: DEXTROSE 50% 50 ML SYRINGE IV PRN (02:19)
[2023-10-01] MEDS ORDERED: GLUCOSE 10 TAB/TUBE PO PRN (02:19)
[2023-10-01] MEDS ORDERED: CARBOHYDRATES FOR HYPOGLYCEMIA PO PRN (02:19)
[2023-10-01] MEDS ORDERED: GLUCAGON FOR INJ 1 MG VIAL SQ PRN (02:19)
[2023-10-01] MEDS ORDERED: DEXTROSE 50% 50 ML SYRINGE IV ONE (02:26)
[2023-10-01] MEDS: LACTATED RINGER'S 1,000 ML IV SCH (02:36)
[2023-10-01] MEDS: propofoL 1,000 MG/100 ML VIAL IV SCH (03:51)
[2023-10-01] MEDS ORDERED: D5W AND 1/2NSS 1,000 ML IV SCH (04:45)
[2023-10-01 04:55] LABS: Basophils # (auto) 0.04 K/uL (0.00-0.20); Basophils % (auto) 0.4 %; Eosinophils # (auto) 0.09 K/uL (0.00-0.50); Eosinophils % (auto) 0.9 %; Hematocrit (blood only) 42.9 % (42.0-52.0); Hemoglobin 14.5 g/dl (14.0-18.0); Immature Granulocytes # (auto) 0.04 K/uL (0.01-0.20); Immature Granulocytes % (auto) 0.4 %; Lymphocytes # (auto) 2.37 K/uL (1.20-3.40); Lymphocytes % (auto) 23.4 %; Mean Corpuscular Hemoglobin 31.4 pg (25.0-34.0); Mean Corpuscular Hgb Conc 33.8 g/dL (32.0-36.0); Mean Corpuscular Volume 92.9 fL (80.0-100.0); Mean Platelet Volume 8.2 fL (9.4-12.4); Monocytes # (auto) 1.06 K/uL (0.11-0.59); Monocytes % (auto) 10.5 %; Neutrophils # (auto) 6.53 K/uL (1.40-6.50); Neutrophils % (auto) 64.4 %; Platelet Count 268 K/uL (130-400); RDW Coefficient of Variation 12.9 % (11.5-14.5); RDW Standard Deviation 43.8 fL (36.4-46.3); Red Blood Count 4.62 M/uL (4.70-6.10); White Blood Count 10.13 K/ul (4.8-10.8)
[2023-10-01 05:01] LABS: BUN Creatinine Ratio 16.3 (10-20); Calcium 9.1 mg/dl (8.6-10.3); Creatinine Clr Calc Pharmacy 131.1 ml/min; Est GFR (African American) 137.3 ml/min; Est GFR (Non-African American) 118.5 ml/min; Potassium 3.6 mmol/L (3.5-5.1)
--- NOTE | 2023-10-01 05:45 | Communication Note ---
Date of Service: October 01, 2023 Patient receiving multiple sedation boluses overnight due to agitation and combativeness. He awakens spontaneously despite high dose propofol. On minimal ventilator settings. Extubated to room air without incident. Redirectable, calm and cooperative once extubated. Resting comfortably. HOB 30. VSS. Coding Level of Care Code None
[2023-10-01] MEDS ORDERED: ICU ELECTROLYTE REPLACEMENT PROTOCOL SCH (06:00)
[2023-10-01 06:03] LABS: Magnesium 1.8 mg/dl (1.7-2.4)
[2023-10-01] MEDS: MAGNESIUM SULFATE / D5W 1 GM/100 ML BAG IV SCH ×2 (06:26→07:59)
[2023-10-01] MEDS: POTASSIUM CHLORIDE CRTAB 20 MEQ TABCR PO SCH ×2 (06:26→10:30)
[2023-10-01] MEDS: ICU Protocol for HYPERglycemia SCH (08:23)
--- NOTE | 2023-10-01 08:59 | Critical Care Progress Note ---
Date of Service October 01, 2023 Assessment & Plan (1) Alcohol intoxication: (2) AMS (altered mental status): (3) Respiratory failure: Plan 23-year-old male found in the field obtunded and then became severely agitated. Received ketamine in the field and was brought to the ER via EMS. In the ER he started vomiting and there was concern for aspiration. He was intubated for airway protection. UDS was positive for THC and benzos. Ethanol level 339.1. Neurologic: No acute issues at this time. Pulmonary: Extubated to room air. No indication of aspiration pneumonia. Cardiovascular: No issues. Mildly hypertensive probably secondary to anxiety. Troponin negative. Gastrointestinal: We will give the patient a diet. Had some mild abdominal pain post potassium supplementation which has resolved. Renal: Urine output has been excellent. Best catheter removed. Discontinue fluids. Infectious disease: No concerns at this time. Hematologic: No issues Endocrine: TSH unremarkable. Lines and tubes: Best catheter removed. We will discontinue IV prior to discharge. VTE prophylaxis: SCDs CODE STATUS: Full Family at bedside: None available bedside Disposition: Discharge home. Admission and Anticipated Discharge Date Admission Date: September 30, 2023 Subjective Patient seen and examined this morning. He was extubated around 4:30 in the morning. He has been doing extremely well on room air. He is eager to go home. He relates that he feels embarrassed secondary to the events yesterday. He did endorse some mild nausea after receiving an oral potassium pill which has subsided. He notes that he is hungry and looking forward to breakfast. He denies any shortness of breath, chest pain, nausea or vomiting at this time. No fevers or chills. He relates that he uses marijuana almost on a nearly daily basis. He frequently vapes and uses edibles. He he denies an issue with alcohol. He relates that yesterday during the [employer] game, he tried "moonshine" and did not realize the potency of this alcohol. Review of Systems Review of Systems: All systems reviewed & are unremarkable except as noted in HPI & below Physical Exam Physical Exam: Constitutional: Patient appears to be of their stated age Patient is well- developed. Eyes: Pupils are equal round and reactive to light. Conjunctivae are normal. Anicteric sclera. Ears nose, mouth and throat: Endotracheal tube in place. Neck: Trachea is midline. Visual inspection is normal. Respiratory: Clear to auscultation bilaterally. No use of accessory muscles. No significant clubbing noted. Cardiovascular: Regular rate and rhythm. No murmurs. No edema. Gastrointestinal: Normal bowel sounds, soft, nontender and nondistended. No hepatosplenomegaly noted. Musculoskeletal: No cyanosis. Patient is able to move all extremities. Strength is 5 out of 5 in the upper and lower extremities. Skin: No rashes, warm dry and intact. Neurologic: CN II through XII intact. No focal deficits. Psychiatric: Alert and oriented x3. Results & Data Results & Data Vital Signs (Past 12 Hours) Vital Signs Temp Pulse Resp BP Pulse Ox O2 Del Method FiO2 10/01/23 08:15 36.8 C 10/01/23 08:00 155/80 H 96 Room Air 10/01/23 08:00 92 H 16 10/01/23 07:00 94 H 15 10/01/23 07:00 139/84 10/01/23 05:30 76 16 133/68 91 10/01/23 05:15 83 16 122/63 89 L 10/01/23 05:00 81 16 121/64 89 L 10/01/23 04:45 75 18 147/74 H 89 L 10/01/23 04:30 68 16 113/60 96 10/01/23 04:15 68 18 115/55 L 95 10/01/23 04:00 70 18 115/59 L 96 10/01/23 04:00 30 10/01/23 03:45 72 16 112/58 L 95 10/01/23 03:30 74 16 114/49 L 96 10/01/23 03:15 75 16 123/55 L 96 10/01/23 03:00 58 L 16 124/71 97 10/01/23 02:45 64 18 129/66 95 10/01/23 02:30 60 16 117/66 95 10/01/23 02:26 66 16 97 30 10/01/23 02:15 74 16 116/55 L 96 10/01/23 02:00 77 16 103/51 L 95 10/01/23 01:45 76 18 109/49 L 95 10/01/23 01:30 76 16 106/49 L 94 10/01/23 01:15 79 16 107/47 L 95 10/01/23 01:00 82 16 113/53 L 95 10/01/23 00:46 36.4 C L 10/01/23 00:45 86 16 108/54 L 95 10/01/23 00:30 85 17 138/71 97 10/01/23 00:15 66 16 116/68 97 10/01/23 00:00 68 16 115/68 97 10/01/23 00:00 101 H 10/01/23 00:00 30 09/30/23 23:45 79 16 116/67 96 09/30/23 23:30 73 16 108/63 97 09/30/23 23:15 73 16 106/58 L 96 09/30/23 23:00 80 16 108/54 L 96 09/30/23 22:45 76 16 103/51 L 96 09/30/23 22:30 73 16 104/51 L 97 09/30/23 22:15 76 16 107/55 L 97 09/30/23 22:15 78 16 97 30 09/30/23 22:00 75 16 109/55 L 97 09/30/23 21:45 76 16 109/61 97 09/30/23 21:30 99 H 16 140/106 H 99 09/30/23 21:15 74 16 129/79 98 09/30/23 21:00 82 16 130/75 98 Coding Level of Care Code 40900 SUB INP/OBS CARE 12/14MIN Diagnoses Alcohol intoxication F10.929 AMS (altered mental status) R41.82 Altered mental status type: unspecified Respiratory failure J96.90 Chronicity: acute (2) AMS (altered mental status) Altered mental status type: unspecified Qualified Code(s): R41.82 - Altered mental status, unspecified (3) Respiratory failure Chronicity: acute
[2023-10-01] MEDS ORDERED: ONDANSETRON 4 MG OD TAB PO PRN (09:54)
--- NOTE | 2023-10-01 09:58 | Discharge Summary ---
Date of Service October 01, 2023 Admission HPI Per Admitting Provider Evans is a 23-year-old male student found unresponsive in a guardado, EMS found patient unresponsive to verbal and painful stimuli with facial trauma. Patient was placed in a c-collar. With aggressive sternal rub patient did arouse but also became combative in the ambulance requiring to 50 mg of ketamine in the left side for sedation. He arrived on 15 L of high flow nasal cannula through nonrebreather, while within the hospital patient had an episode of vomiting and apnea for which he was emergently intubated and placed on propofol drip with Versed. CXR confirmed placement. CT of the neck w/o fxr or subluxation. History unable to be obtained due to ETT/sedation. Patient does have a cellular device which is password protected and does not have emergency call/contact set up. Unable to access for contact information Admission Exam Per Admitting Provider General: Intubated, sedated. Withdraws to noxious stimuli, otherwise does not follow commands HEENT: Erythema of the face, scant amount of blood surrounding the nare. Pupils equal and reactive to light Pulm: ETT in place, clear breath sounds bilaterally Cardiac: RRR, -mrg. Radial pulses intact and symmetrical. Abdominal: nondistended, soft. BS present. Extremities: Superficial abrasion to the right and left lateral knee Principal Diagnosis Alcohol intoxication Discharge Exam Constitutional: well appearing male in NAD, anxious to leave Patient appears to be of their stated age Patient is well-developed. HEENT: AT NC MMM PERRL Neck: Trachea is midline. Visual inspection is normal. Respiratory: Clear to auscultation bilaterally. No use of accessory muscles. N o significant clubbing noted. Cardiovascular: Regular rate and rhythm. No murmurs. No edema. Gastrointestinal: soft, nontender and nondistended. Musculoskeletal: No cyanosis. Patient is able to move all extremities. Skin: No rashes, warm dry and intact. Neurologic: CN II through XII intact. No focal deficits. Psychiatric: Alert and oriented x3. Discharge Data Allergies Allergy/AdvReac Type Severity Reaction Status Date / Time bee venom protein (honey bee) Allergy Anaphylaxis Verified 09/30/23 18:13 Sulfa (Sulfonamide Allergy Rash Verified 09/30/23 18:13 Antibiotics) Consultations 09/30/23 16:24 Consult Leather Etcher Routine ED Decision to Admit Stat Ordered Studies Cervical Spine CT 09/30/23 14:50 FINDINGS: Alignment of the cervical spine is anatomic. Vertebral body heights are maintained. No acute cervical spine fracture or subluxation is present. There is no prevertebral edema. Facet joints are intact. Endotracheal tube is partially imaged. Secretions within the pharynx are related to intubation. IMPRESSION: No acute cervical spine fracture or subluxation. Face CT 09/30/23 14:50 FINDINGS: Endotracheal tube is partially imaged. This likely accounts for secretions within the oropharynx and nasopharynx. There are also secretions within the right nasal cavity/nares. No acute facial bone fracture is present. Alignment of the temporomandibular joints is anatomic. Globes are intact. There is no retrobulbar hematoma. There is rightward deviation of the nasal septum with spur formation. This is chronic. Orbital floors are intact. IMPRESSION: No acute facial fracture. Head CT 09/30/23 14:50 FINDINGS: No acute intracranial hemorrhage, midline shift or mass effect is present. The ventricular system is unremarkable. The basal cisterns are patent. No extra-axial collections are present. There are no findings to suggest acute dural sinus thrombosis or acute territorial infarct. No acute calvarial fracture is identified. Please note that the facial bone CT will be reported separately. There are right nasal secretions. IMPRESSION: 1. No acute intracranial findings. 2. No acute calvarial fracture. Chest X-Ray 09/30/23 15:09 FINDINGS: The tip of the endotracheal tube is 4.5 cm above the josr. Lung volumes are normal. Lungs are clear. There is no pneumothorax or pleural effusion. Cardiac size is normal. Mediastinal contours are normal. There is no evidence for pulmonary edema. IMPRESSION: 1. Satisfactory positioning of the endotracheal tube. 2. No acute cardiopulmonary findings. Hospital Course (1) Alcohol intoxication: (2) AMS (altered mental status): (3) Respiratory failure: Plan 23 y/o male found by bystanders in a guardado and brought to the hospital by EMS. #Alcohol intoxication #Acute Respiratory Failure #Endotracheal Intubation Patient with alcohol intoxication evident by AMS and 339 ethyl alcohol level. Patient with episode of vomiting and apnea. Subsequently intubated for protection of airway. Transferred to the ICU. UDS positive for marijuana and benzos. Unclear if sample was taken prior to administration of midazolam. Since extubated and stable for discharge. #Facial Trauma CT of the face shows no fracture. CTC-spine without fracture/subluxation. Patient without memory of hitting his head. Tylenol/Ibuprofen for pain. #Leukocytosis Likely reactive, resolved at time of discharge Total Time Total Time Spent Total Time Spent (In Minutes): <30 Discharge Plan Discharge Items Patient Disposition: Home - Self-Care Reason For Visit: ALCOHOL INTOXICATION, INTUBATION Discharge Diagnosis: alcohol intoxication Activity: Per Instructions section Non-emergency contact: Primary Care Provider Call non-emergency contact if: your symptoms worsen Follow-up/Referrals: [place],[facility] [Non-Staff] - PCP,NO [Primary Care Provider] - Diet: Regular Addtl Attending Provider Instructions: You were found outside and brought to the hospital for acute alcohol intoxication. You were unable to maintain your own airway because of your mental status so you were intubated. As your mentation improved you were able to be rian en off the ventilator. At this point you are stable for discharge home. I would recommend you refrain from that level of consumption of alcohol in the future. A discharge summary will be sent to your primary care physician to ensure continuity of care. Please bring this discharge summary with you to your next office appointment so that your provider can review it at that time. Follow-up appointments: Make a follow-up appointment with your PCP within the next week. It is very important that you follow up with them shortly after discharge from the hospital. Medications: Your medication list has been reviewed and reconciled upon discharge to ensure accuracy and continuity of care. An updated list of all your medications is included with your hospital discharge paperwork. Please review this list closely, and make note of any changes. CONTACT YOUR PRIMARY CARE PROVIDER if you experience any of the following: dizziness/lightheadedness fevers or chills Difficulty following your treatment plan, or difficulty taking medications CALL 911 OR GO TO THE EMERGENCY DEPARTMENT if you experience any of the following: Sudden, severe abdominal pain or nausea/vomiting Severe chest pain, or chest pain that radiates (moves) to your jaw or arm Sudden, severe shortness of breath or difficulty breathing Thank you for allowing us to participate in your care Pending Studies at Discharge: No Stand-Alone Forms: My [employer] Prep, Smoking Cessation Medications and DC Order Prescriptions: Continued epinephrine 0.3 mg/0.3 mL Auto-Injector 0.3 mg IM Q4H PRN (Reason: Allergic Reaction) Discharge Orders: Discharge Order (Routine); Ordered 10/01/23 Ordered By: Lelo Del Valle/Other Patient Handouts: Social Drinking vs Problem Drinking, ED Alcohol Intoxication Admission Data Admit Date/Time: 09/30/23 16:43 Attending Provider: Luke Milton Admit Provider: Austin Santana Primary Care Provider: PCP,NO Other Providers: Austin Santana; Fernie Arroyo Other Interventions: Discharge Summary Assessment (RN) Last Done: 10/01/23 10:26 Supervising Physician Co-Signing Physician Notes I personally examined the patient and verified all patterson points of history and exam, discussed case, and agree with decision making with Dr Jessica feels better would like to go home. understands what happened "i won't be a repeat offender" vitals noted nad heent nc at mmm breathing unlabored no accessory muscles good effort skin no rashes no pallor or icterus neuro no focal deficits EtOH intoxication, agitation, inability to protect airway - now better. safe/stable for home. otherwise as above Resident Activity Tracking Resident Involvement: Resident Care Provided Care Provided: Adult Hospital Medicine
--- NOTE | 2023-10-01 17:33 | Billing Data ---
Date of Service October 01, 2023 Coding Level of Care Code 18765 IN/OBS DISCH 30 MIN/LESS
--- NOTE | 2023-10-02 05:51 | Electrocardiogram Report ---
Test Reason : Blood Pressure : / mmHG Vent. Rate : 088 BPM Atrial Rate : 088 BPM P-R Int : 134 ms QRS Dur : 094 ms QT Int : 360 ms P-R-T Axes : 062 078 049 degrees QTc Int : 435 ms Normal sinus rhythm Normal ECG No previous ECGs available Confirmed by Jakob Nascimento ([id number]) on 10/02/2023 5:51:36 AM Referred By: REFERRED SELF Confirmed By:Jakob Nascimento
[2023-10-04 10:01] LABS: 7-Aminoclonaz, Confirm NEGATIVE ng/mL (<25); Hydro-Alp Ur, GC/MS NEGATIVE ng/mL (<25); Hydroxyethylflurazepam, Conf NEGATIVE ng/mL (<50); Hydroxymidazolam Ur, GC/MS 385 ng/mL (<50); Hydroxytriazolam NEGATIVE ng/mL (<50); Lorazepam, Ur GC/MS NEGATIVE ng/mL (<50); Marijuana Quant, GCMS Urine 67 ng/mL (<5); Nordiazepam, Confirm NEGATIVE ng/mL (<50); Oxazepam Ur, GC/MS NEGATIVE ng/mL (<50); Temazepam, Confirm NEGATIVE ng/mL (<50)
== END 2023-10-01 11:00 | disposition home or self-care (01) | DRG 896 ==
LOC: EDBD → ED 14:45 → SUATTDRO 16:43 → 1E 16:43